=== PATIENT | female | born 1950 | race Caucasian/White ===

== ENCOUNTER 2018-01-12 05:55 | Day surgery (SDC) | payer BC ==
[2018-01-09 10:22] VITALS: BMI 22.8
[2018-01-12] MEDS ORDERED: CEFAZOLIN/Water 2 GM/20 ML SYRINGE ONE ×2 (06:14→06:32)
[2018-01-12] MEDS ORDERED: Heparin 5,000 UNITS/ML VIAL ONE (06:14)
[2018-01-12] MEDS ORDERED: Gentamicin 80 MG/2 ML VIAL ONE (06:31)
[2018-01-12] MEDS ORDERED: Sodium Chloride 0.9% 10 ML ONE (06:31)
[2018-01-12] MEDS ORDERED: Fentanyl 250 MCG/5 ML VIAL ONE ×2 (07:16→08:50)
[2018-01-12] MEDS ORDERED: Midazolam HCl 2 mg/2 ml Vial ONE (07:16)
[2018-01-12] MEDS ORDERED: Bupivacaine/Epinephrine 0.25% 30 ML VIAL ONE ×2 (07:31→07:42)
--- NOTE | 2018-01-12 12:59 | OP ---
PREOPERATIVE DIAGNOSES: 1. Breast cancer. 2. Status post left radiation. 3. Scar deformity of previous MediPort. POSTOPERATIVE DIAGNOSES: 1. Breast cancer. 2. Status post left radiation. PROCEDURES PERFORMED: 1. Bilateral placement of breast implants (23442.50). 2. Internal Young flap left side (2 x 8 cm, 16 cm2, 29202). 3. Scar revision of right MediPort (4 cm) [id number]. OPERATIVE FINDINGS: Left breast, [place], reference #[id number] , serial [id number] -0.19. Right breast implant, reference # [id number] , serial [id number]. PROCEDURE IN DETAIL: Following induction of adequate anesthesia, the patient was prepped and draped in the usual sterile fashion in the supine position. Attention was first turned to the left mastectomy site. An inframammary crease incision was made. Dissection was carried sharply down through the subcutaneous tissue to identify a large seroma cavity. This extended approximately 3 cm below the inframammary crease. The posterior wall of the seroma cavity was incised. The pectoralis muscle was inspected. It was noted to be supple. An adequate submuscular pocket was then created with release of the inferior attachments of the pectoralis major muscle. The adequate submuscular pocket was satisfactory except for the fact that it was continuous with the large seroma cavity inferiorly. An internal Young flap was designed to recreate inframammary crease as well as obliterate the capsule. The inframammary crease incision was extended to encompass almost the entire inframammary crease. The skin was de-epithelialized. This was then incised. Dermal flaps were raised inferiorly and superiorly. Capsular flaps were then raised inferiorly. The inferior capsule was advanced to the level of the inframammary crease and then closed down with a series of interrupted 2-0 PDS followed by 2-0 Prolenes. The dermal flap had been raised was then secured to that with interrupted 3-0 PDS suture to bring the skin up to the new inframammary crease as well. A sizer was used to determine if the desired size of 275 mL could be achieved and it was. The pocket was copiously irrigated with dilute antibiotic solution followed by dilute Betadine solution prior to placing a skin barrier and donning new gloves with the above implant placed. The pocket was inspected for meticulous hemostasis prior to closure with 3-0 PDS suture and 3-0 Monocryl suture. An inframammary crease incision was made on the right. Dissection was carried sharply down through the subcutaneous tissue. Another seroma cavity was identified. This pocket was closed. An adequate submuscular pocket was created posterior to the seroma cavity with similar release of the inferior attachments of the pectoralis major muscle. A sizer was used to determine the 200 mL implant would give the best symmetry. This was similarly placed as described above. The incision was closed with 3-0 PDS suture and 3-0 Monocryl suture. Attention was turned to the right MediPort depressed scar. The patient had a depressed scar that was approximately 1 cm depressed at its greatest depth or 1.5 cm at its greatest depth. This bothered the patient determines been visible on clothing. I de-epithelialized an ellipse of skin over the scar. This was incised. Dermal flaps were then raised superiorly and inferiorly. These were sutured in place in a [id number] fashion using 3-0 PDS suture. The skin was then closed with 3-0 Monocryl suture. The length of the scar revision was 4 cm. Patient tolerated the procedure well. DOT
[2018-01-12] MEDS ORDERED: Glycopyrrolate 0.2 MG/ML 5 ML SYRINGE ONE (15:49)
[2018-01-12] MEDS ORDERED: Ondansetron HCl/PF 4 MG/2 ML Vial ONE (15:49)
[2018-01-12] MEDS ORDERED: Dexamethasone 20 MG/5 ML VIAL ONE (15:49)
[2018-01-12] MEDS ORDERED: PROPOFOL 200 MG/20 ML VIAL ONE (15:49)
[2018-01-12] MEDS ORDERED: Lidocaine 1% PF 5 ML VIAL ONE (15:49)
== END 2018-01-12 12:15 | disposition home or self-care (01) ==
LOC: SDC 05:55
PROVIDERS: ATTEND Plastic Surgery
PROC: 0HQ5XZZ Repair Chest Skin, External Approach (ICD-10-PCS; principal; 2018-01-12)
PROC: 0HRV0JZ Replacement of Bilateral Breast with Synthetic Substitute, Open Approach (ICD-10-PCS; principal; 2018-01-12)
PROC: 0HX5XZZ Transfer Chest Skin, External Approach (ICD-10-PCS; principal; 2018-01-12)
DX: Z42.1 Encounter for breast reconstruction following mastectomy (principal); L90.5 Scar conditions and fibrosis of skin; Z79.811 Long term (current) use of aromatase inhibitors; Z79.899 Other long term (current) drug therapy; Z92.3 Personal history of irradiation; Z85.3 Personal history of malignant neoplasm of breast; Z88.1 Allergy status to other antibiotic agents; Z88.2 Allergy status to sulfonamides; Z88.5 Allergy status to narcotic agent; Z88.8 Allergy status to other drugs, medicaments and biological substances
CPT/HCPCS: A4216; J1100; J1580; J1644; J2001; J2250; J2405; J2704; J3010; J3370; J3490; L8600

== ENCOUNTER 2019-02-04 14:12 | Outpatient (CLI) | payer BC ==
--- NOTE | 2019-02-04 14:41 | RAD ---
XR Chest Pa Lat STANDARD HISTORY:Asthmatic bronchitis with acute exacerbation COMPARISON: None. FINDINGS: Heart size and mediastinum are within normal limits. The lungs are clear of any infiltrativ e process. There are arthritic changes of the spine. IMPRESSION: No active intrathoracic disease.
== END 2019-02-04 14:13 | disposition home or self-care (01) ==
LOC: BICRAD 14:12
PROVIDERS: ATTEND Family Medicine
DX: J45.901 Unspecified asthma with (acute) exacerbation (principal)
CPT/HCPCS: 71046

== ENCOUNTER 2019-06-11 09:51 | Outpatient (CLI) | payer BC ==
--- NOTE | 2019-06-11 10:28 | BD ---
EXAM: DEXA bone density examination HISTORY: Osteoporosis screening COMPARISON: July 10, 2017 from [facility] FINDINGS: L1--bone mineral density 0.829 g/sq cm; T score -1.5. Z score 0.2 L2--bone mineral density 0.831 g/sq cm; T score -1.8; Z score 0.1 L3--bone mineral density 0.833 g/sq cm; T score -2.3; Z score -0.3 L4--bone mineral density 0.907 g/sq cm; T score -1.4, Z score 0.6 Total L1-L4--bone mineral density 0.852 g/sq cm; T score -1.8, Z score 0.1 Left femoral neck--bone mineral density0.600; T score -2.2, Z score -0.6 Total proximal left femur--bone mineral density 0.817; T score -1.0, Z score 0.3 Right femoral neck--bone mineral density0.64; T score -2.0, Z score -0.4 Total proximal right femur--bone mineral density 0.831; T score -0.9, Z score 0.4 This patient has a 10 year WHO fracture risk of a major osteoporotic fracture of 18 and of a hip frac ture of 3.8. IMPRESSION: Based on the WHO criteria, the patient's bone mineral density is consideredosteopenic and at moderate risk for fracture. The patient's bone mineral density is relatively stable to the comparison dated 07/10/2017.
== END 2019-06-11 09:52 | disposition home or self-care (01) ==
LOC: BICMAMMO 09:51
PROVIDERS: ATTEND Internal Medicine Hematology & Oncology
DX: M81.8 Other osteoporosis without current pathological fracture (principal); C50.112 Malignant neoplasm of central portion of left female breast; M85.89 Other specified disorders of bone density and structure, multiple sites
CPT/HCPCS: 77080

== ENCOUNTER 2020-09-06 07:38 | Outpatient (CLI) | payer BC ==
--- NOTE | 2020-09-06 08:42 | BD ---
DEXA BONE DENSITY STUDY: Date: 09/06/2020 HISTORY: Osteoporosis screening. COMPARISON: DEXA scan [id number]. FINDINGS: Lumbar Spine: BMD (g/cm2) L1 0.848 T-Score: -1.3 Z-Score: 0.5 L2 0.863 T-Score: -1.5 Z-Score: 0.5 L3 0.875 T-Score: -1.9 Z-Score: 0.2 L4 0.891 T-Score: -1.5 Z-Score: 0.6 L1-L4 0.870 T-Score: -1.6 Z-Score: 0.4 Right Femoral Neck: 0.634 T-Score: -1.9 Z-Score: -0.2 Total Right Hip: 0.887 T-Score: -0.4 Z-Score: 1.0 (Change from comparison exam is +6.7%, statistically significant.) Left Femoral Neck: 0.631 T-Score: -2.0 Z-Score: -0.3 Total Left Hip: 0.902 T-Score: -0.3 Z-Score: 1.1 (Change from comparison exam is +10.4%, statistically significant.) WHO Classification: Osteopenia. 10 YEAR FRACTURE RISK: Major osteoporotic fracture: 17% Hip fracture: 3.4% IMPRESSION: Osteopenia with elevated fracture risk. Statistically significant increase in bone mineral density fr om the comparison exam. POS: [facility]
== END 2020-09-06 07:39 | disposition home or self-care (01) ==
LOC: BICMAMMO 07:38
PROVIDERS: ATTEND Internal Medicine Hematology & Oncology
DX: Z13.820 Encounter for screening for osteoporosis (principal); N95.8 Other specified menopausal and perimenopausal disorders; C50.112 Malignant neoplasm of central portion of left female breast; M81.8 Other osteoporosis without current pathological fracture
CPT/HCPCS: 77080

== ENCOUNTER 2021-11-06 13:02 | Inpatient (IN) | payer MEDICARE, BC ==
[~2021-11-06 13:02] MED LIST: Iopamidol-370 76% 500 ML 1 ML ONE
[2021-11-06] MEDS ORDERED: Aspirin Chewable 81 MG TAB ONE (13:44)
[2021-11-06 14:01] LABS: Prothrombin Time 13.8 sec (12.0-14.7)
[2021-11-06 14:02] LABS: PTT 30.7 sec (22.9-36.1)
[2021-11-06 14:03] LABS: ALT (SGPT) 32 U/L (8-55); AST (SGOT) 33 U/L (5-34); Albumin 3.8 g/dL (3.4-4.8); Alkaline Phosphatase 105 U/L (40-110); Anion Gap 15 mmol/L (10-20); BUN (Urea Nitrogen) 15 mg/dL (9.8-20.1); Bilirubin, Total 0.7 mg/dL (0.2-1.2); CK (CPK) 85 U/L (29-168); Calc. Creatinine Clearance 0 mL/min (70-130); Calcium 9.1 mg/dL (7.8-10.44); Carbon Dioxide 25 mmol/L (23-31); Chloride 100 mmol/L (98-107); Globulin 2.7 g/dL (2.4-3.5); Glucose 112 mg/dL (80-115); Potassium 4.2 mmol/L (3.5-5.1); Protein, Total 6.5 g/dL (5.8-8.1); Sodium 136 mmol/L (136-145)
[2021-11-06 14:10] LABS: Hemoglobin 14.5 g/dL (12.0-16.0); Mean Corpuscular HGB CONC 33.4 g/dL (32.0-36.0); Mean Corpuscular Hemoglobin 34.2 pg (27.0-31.0); Mean Platelet Volume 8.1 fL (7.4-10.4); Platelet Count 171 thou/uL (130-400); RBC Distribution Width 16.1 % (11.5-14.5); Red Blood Cell (RBC) Count 4.24 mill/uL (4.20-5.40); White Blood Cell (WBC) Count 6.5 thou/uL (4.8-10.8)
[2021-11-06 14:33] LABS: Anisocytosis SLIGHT = 6-15 cells (100X) (0-5/hpf); Band 5 % (5-11); Eosinophils 1 % (0-10); Lymphocytes 3 % (21-51); MDiff Complete? YES; Macrocytosis SLIGHT = 6-15 cells (100X) (0-5/hpf); Monocytes 19 % (0-10); Neutrophil 69 % (42-75); Platelet Morphology Comment Appears Adequate; Polychromasia SLIGHT = 2-3 cells (100X) (0-2/hpf); Stomatocytes SLIGHT = 2-5 cells (100X) (0-1/hpf)
[2021-11-06 17:12] LABS: Troponin I Less than 0.010 ng/mL (< 0.028)
[2021-11-06 18:40] LABS: SARS-CoV-2 NAA Rapid Test DETECTED (NotDetected)
[2021-11-06] MEDS ORDERED: guaiFENesin 200 MG TAB PO PRN (18:55)
[2021-11-06] MEDS ORDERED: Acetaminophen 325 MG TAB PO PRN (19:01)
[2021-11-06] MEDS ORDERED: Ondansetron PF 4 MG/2 ML Vial IVP PRN (19:01)
[2021-11-06 19:56] LABS: Troponin I Less than 0.010 ng/mL (< 0.028)
[2021-11-06 21:33] VITALS: BMI 22.3
[2021-11-06 22:39] LABS: Amphetamine Not Detected (NotDetected); Barbiturates Screen Not Detected (NotDetected); Benzodiazepine Screen Not Detected (NotDetected); Cocaine Metabolite Screen Not Detected (NotDetected); Methadone Not Detected (NotDetected); Methamphetamine Not Detected (NotDetected); Opiate Screen Not Detected (NotDetected); Oxycodone Screen Not Detected (NotDetected); Phencyclidine (PCP) Not Detected (NotDetected); THC/Cannabinoid Screen Not Detected (NotDetected); Tricyclic Screen Not Detected (NotDetected)
[2021-11-07] MEDS ORDERED: Atorvastatin Calcium 40 MG TAB PO SCH (00:30)
[2021-11-07 06:42] LABS: Mean Corpuscular HGB CONC 32.7 g/dL (32.0-36.0); Mean Corpuscular Hemoglobin 33.8 pg (27.0-31.0); Mean Platelet Volume 7.8 fL (7.4-10.4); Platelet Count 155 thou/uL (130-400); RBC Distribution Width 16.1 % (11.5-14.5); Red Blood Cell (RBC) Count 4.13 mill/uL (4.20-5.40); White Blood Cell (WBC) Count 5.3 thou/uL (4.8-10.8)
[2021-11-07 06:54] LABS: Anion Gap 13 mmol/L (10-20); BUN (Urea Nitrogen) 15 mg/dL (9.8-20.1); Calc. Creatinine Clearance 63 mL/min (70-130); Calcium 8.7 mg/dL (7.8-10.44); Carbon Dioxide 22 mmol/L (23-31); Cardiac Risk 2.3 (Less than 4.5); Chloride 105 mmol/L (98-107); Cholesterol 130 mg/dl (< 200 Desired); Glucose 100 mg/dL (80-115); HDL Cholesterol 56 mg/dL (>60 Neg Risk); LDL Cholesterol, Calculated 65 mg/dL; Potassium 3.9 mmol/L (3.5-5.1); Sodium 136 mmol/L (136-145); Triglycerides 44 mg/dL (Less than 150)
[2021-11-07 07:32] LABS: Band 3 % (5-11); Eosinophils 1 % (0-10); Lymphocytes 23 % (21-51); MDiff Complete? YES; Monocytes 6 % (0-10); Neutrophil 64 % (42-75); Platelet Morphology Comment Appears Adequate; RBC Morphology Normal; Reactive Lymphocytes 3 % (0-10)
[2021-11-07] MEDS ORDERED: Aspirin 81 mg Enteric Coated Tablet PO SCH (09:00)
[2021-11-07] MEDS ORDERED: BIOTIN 1000 MCG PO SCH (09:00)
[2021-11-07] MEDS ORDERED: Enoxaparin Sodium 40 MG/0.4 ML SYRINGE SC SCH (09:00)
[2021-11-07] MEDS ORDERED: Zinc Sulfate 220 MG CAP PO SCH (09:00)
[2021-11-07] MEDS ORDERED: Vit A,C & E/Lutein/Minerals Tablet PO SCH (09:00)
[2021-11-07] MEDS ORDERED: Folic Acid 1 MG TAB PO SCH (09:00)
[2021-11-07] MEDS ORDERED: Ascorbic Acid 500 mg Chewable Tablet PO SCH (09:00)
[2021-11-07] MEDS ORDERED: Anastrozole 1 MG TAB PO SCH (09:00)
[2021-11-07] MEDS ORDERED: Multivitamin W/ Minerals 1 TAB PO SCH (09:00)
[2021-11-07] MEDS ORDERED: Artificial Tear Sol 15 ML BOT EA EYE SCH (09:00)
[2021-11-07] MEDS ORDERED: Cholecalciferol 1,000 UNITS (25 MCG) TAB PO SCH (09:00)
[2021-11-07 12:26] VITALS: TEMP 99.5
[2021-11-07 16:57] VITALS: BP 119/58
[2021-11-07] MEDS ORDERED: Cyclobenzaprine 10 MG TAB PO SCH (21:00)
[2021-11-08] MEDS ORDERED: Atorvastatin Calcium 40 MG TAB PO SCH (21:00)
== END 2021-11-07 18:15 | disposition home or self-care (01) | DRG 69 ==
LOC: ERS 13:02 → ERHOLD 15:19 → 2SE 21:15
PROVIDERS: ADMIT Internal Medicine; ATTEND Hospitalist
PROC: 8E0ZXY6 Isolation (ICD-10-PCS; principal; 2021-11-06)
DX: G45.9 Transient cerebral ischemic attack, unspecified (principal); U07.1 COVID-19; M06.9 Rheumatoid arthritis, unspecified; Z86.73 Personal history of transient ischemic attack (TIA), and cerebral infarction without residual deficits; Z85.3 Personal history of malignant neoplasm of breast; Z90.13 Acquired absence of bilateral breasts and nipples; Z88.5 Allergy status to narcotic agent; Z88.2 Allergy status to sulfonamides; Z88.8 Allergy status to other drugs, medicaments and biological substances; Z79.899 Other long term (current) drug therapy; Z79.82 Long term (current) use of aspirin; Z90.722 Acquired absence of ovaries, bilateral
CPT/HCPCS: 36415; 36416; 70450; 70496; 70498; 70551; 80048; 80053; 80061; 80306; 82550; 83615; 83735; 84443; 84484; 85025; 85610; 85730; 86140; 87040; 93005; J1650; Q9967; U0002

== ENCOUNTER 2022-10-22 13:46 | Outpatient (CLI) | payer MEDICARE, BC | END 2022-10-22 13:47 | disposition home or self-care (01) | LOC: RAD 13:46 | PROVIDERS: ATTEND Internal Medicine Rheumatology | DX: M79.672 Pain in left foot (principal); S92.515D Nondisplaced fracture of proximal phalanx of left lesser toe(s), subsequent encounter for fracture with routine healing ==

== ENCOUNTER 2023-07-02 08:34 | Outpatient (CLI) | payer MEDICARE, BC | END 2023-07-02 08:35 | disposition home or self-care (01) | LOC: BICMAMMO 08:34 | PROVIDERS: ATTEND Internal Medicine Rheumatology | DX: M81.0 Age-related osteoporosis without current pathological fracture (principal); M85.89 Other specified disorders of bone density and structure, multiple sites | CPT/HCPCS: 77080 ==